=== PATIENT | female | born 1975 ===

== ENCOUNTER 2024-09-02 05:15 | Inpatient (IN) | payer OTHER ==
[2024-08-31 12:15] LABS: RH POSITIVE
[2024-08-31 15:28] VITALS: BP 124/75
[~2024-09-02] VITALS: Ht 167.6 cm; Wt 80.3 kg
[2024-09-02] MEDS ORDERED: POVIDONE-IODINE 118 ML BOTT TOP ONE (17:45)
[2024-09-02] MEDS ORDERED: KETOROLAC TROMETHAMINE 30 MG VIAL IV ONE (18:15)
[2024-09-02] MEDS ORDERED: RINGERS SOLUTION,LACTATED 1,000 ML IV SCH (18:15)
[2024-09-02] MEDS ORDERED: MORPHINE SULFATE 4 MG/ML CARTRIDGE IV PRN (18:15)
[2024-09-02] MEDS ORDERED: THROMBIN,HU/FIBRINOGEN/CALCIUM 10 ML SYRINGE TOP ONE (18:15)
[2024-09-02] MEDS ORDERED: SURGIFLO APPLICATOR 1 EACH APPL TOP ONE (18:30)
[2024-09-02] MEDS ORDERED: VISTASEAL DUAL APPICATOR 1 EACH APPL TOP ONE (18:30)
[2024-09-02] MEDS ORDERED: METRONIDAZOLE/SODIUM CHLORIDE 500 MG/100 ML PIGGYBACK IV ONE (18:30)
[2024-09-02] MEDS ORDERED: HEMOSTATIC MATRIX 1 KIT KIT TOP ONE (18:30)
[2024-09-02] MEDS ORDERED: MORPHINE SULFATE 4 MG/ML VIAL IV ONE ×2 (19:05→20:05)
[2024-09-02] MEDS ORDERED: FAMOTIDINE/PF 20 MG/2 ML VIAL IV PUSH SCH (21:00)
[2024-09-02] MEDS ORDERED: DOCUSATE SODIUM 100MG CAP PO SCH (21:00)
[2024-09-02] MEDS ORDERED: SIMETHICONE 125 MG CAPSULE PO SCH (21:00)
[2024-09-02] MEDS ORDERED: GABAPENTIN 300 MG CAPSULE PO SCH (21:00)
[2024-09-02 21:10] LABS: HEMATOCRIT 30.4 % (36.0-45.00); HEMOGLOBIN 9.9 g/dL (12.0-15.00); MEAN CELL VOLUME 81.1 fL (80.00-100.00); MEAN CORPUSCULAR HEMOGLOBIN 26.3 pg (27.00-32.0); MEAN CORPUSCULAR HGB CONC 32.4 g/dl (32.0-36.0); PLATELET COUNT 407 K/uL (150-450); RED BLOOD COUNT 3.75 M/uL (4.00-6.00)
[2024-09-02 21:38] LABS: ALBUMIN 3.3 gm/dL (3.4-5.0); CALCIUM 8.2 mg/dL (8.5-10.1); CREATININE SERUM 0.69 mg/dL (0.55-1.02); GFR 90.43; POTASSIUM 4.26 mEq/L (3.5-5.1)
[2024-09-02 21:45] VITALS: BP 90/62
[2024-09-02 21:53] LABS: PHOSPHOROUS 1.9 mg/dL (2.5-4.9)
[2024-09-03] MEDS ORDERED: ACETAMINOPHEN 500 MG GEL..CAP PO SCH
[2024-09-03] MEDS ORDERED: KETOROLAC TROMETHAMINE 30 MG VIAL IM SCH
[2024-09-03] MEDS ORDERED: METRONIDAZOLE/SODIUM CHLORIDE 500 MG/100 ML PIGGYBACK IV SCH (01:00)
[2024-09-03] MEDS ORDERED: METOCLOPRAMIDE HCL 5 MG/ML VIAL IV SCH (01:00)
[2024-09-03] MEDS ORDERED: CEFAZOLIN SODIUM 1,000 MG VIAL IV SCH (01:00)
[2024-09-03 01:37] VITALS: BP 137/72; O2SAT 100
[2024-09-03 06:56] LABS: HEMATOCRIT 29.3 % (36.0-45.00); HEMOGLOBIN 9.7 g/dL (12.0-15.00); MEAN CORPUSCULAR HEMOGLOBIN 26.7 pg (27.00-32.0); PLATELET COUNT 373 K/uL (150-450); RED BLOOD COUNT 3.61 M/uL (4.00-6.00); RED CELL DISTRIBUTION WIDTH 16.1 % (11.5-14.5)
[2024-09-03 07:54] LABS: ALBUMIN 3.1 gm/dL (3.4-5.0); CALCIUM 8.3 mg/dL (8.5-10.1); CREATININE SERUM 0.77 mg/dL (0.55-1.02); GFR 79.67; PHOSPHOROUS 2.5 mg/dL (2.5-4.9); POTASSIUM 4.47 mEq/L (3.5-5.1)
[2024-09-03 08:00] VITALS: BP 112/58; O2SAT 96
[2024-09-03] MEDS ORDERED: ENOXAPARIN SODIUM 40 MG/0.4 ML SYRINGE SUBCUTANEO SCH (17:00)
== END 2024-09-03 12:01 | disposition home or self-care (01) | DRG 743 ==
LOC: CIR.AMB 05:15 → SURH 19:40 → O/R 19:40 → SURH 19:54 → CIR.AMB 22:45 → SURH 09-03 12:01
PROVIDERS: Obstetrics & Gynecology; ADMIT Obstetrics & Gynecology Gynecologic Oncology; ATTEND Obstetrics & Gynecology Gynecologic Oncology
PROC: 0UB74ZZ Excision of Bilateral Fallopian Tubes, Percutaneous Endoscopic Approach (ICD-10-PCS; 2024-09-02)
PROC: 0DNW4ZZ Release Peritoneum, Percutaneous Endoscopic Approach (ICD-10-PCS; 2024-09-02)
PROC: 0UT94ZZ Resection of Uterus, Percutaneous Endoscopic Approach (ICD-10-PCS; principal; 2024-09-02 22:45)
DX: D25.9 Leiomyoma of uterus, unspecified (principal); N80.03 Adenomyosis of the uterus; Z20.822 Contact with and (suspected) exposure to COVID-19